=== PATIENT | female | born 1930 | race Caucasian/White ===

== ENCOUNTER 2016-07-05 17:26 | Emergency (ER) | payer MEDICARE, OTHER ==
[~2016-07-05] VITALS: Ht 152.4 cm; Wt 56.8 kg
--- NOTE | 2016-07-05 17:41 | ERD ---
ER Documentation Chief Complaint Date/Time DATE: 07/05/16 TIME: 17:40 Chief Complaint Unhappy with living situation. HPI This 86-year-old female presents emergency room because she is not happy at the facility where she is currently living. She denies wanting to hurt herself or others. Also denies pain or current medical issues. She states however, if she is sent back she will jump in front of a bus. ROS All systems reviewed and are negative except as per history of present illness. Medications Home Meds No Active Prescriptions or Reported Meds Allergies Allergies: Coded Allergies: No Known Allergy (Unverified , 06/13/14) PMhx/Soc History of Surgery: Yes Hx Cardiac Disorders: Yes (HTN; ) Hx Miscellaneous Medical Probl: Yes (THYROID) Hx Alcohol Use: No Hx Substance Use: No Hx Tobacco Use: No Physical Exam Vitals Vital Signs Date Time Temp Pulse Resp B/P Pulse Ox O2 Delivery O2 Flow Rate FiO2 07/05/16 18:20 98.0 78 16 148/68 99 Physical Exam Const: [] No distress, conversive Head: Atraumatic Eyes: Normal Conjunctiva ENT: Normal External Ears, Nose and Mouth. Neck: Full range of motion..~ No meningismus. Resp: Clear to auscultation bilaterally Cardio: Regular rate and rhythm, no murmurs Abd: Soft, non tender, non distended. Normal bowel sounds Skin: No petechiae or rashes Back: No midline or flank tenderness Ext: No cyanosis, or edema Neur: Awake and alert and oriented 3, no focal deficit Psych: Normal Mood and Affect Result Diagram: 07/05/16 19007/05/16 190 Results 24 hrs Laboratory Tests Test 07/05/16 19:00 07/05/16 20:11 White Blood Count 7.910^3/ul Red Blood Count 4.3210^6/ul Hemoglobin 12.9g/dl Hematocrit 39.3% Mean Corpuscular Volume 91.0fl Mean Corpuscular Hemoglobin 29.9pg Mean Corpuscular Hemoglobin Concent 32.8g/dl Red Cell Distribution Width 12.8% Platelet Count 53966^3/UL Mean Platelet Volume 10.0fl Neutrophils % 68.0% Lymphocytes % 17.0% Monocytes % 13.2% Eosinophils % 0.5% Basophils % 0.8% Nucleated Red Blood Cells % 0.0/100WBC Neutrophils # 5.410^3/ul Lymphocytes # 1.310^3/ul Monocytes # 1.010^3/ul Eosinophils # 0.010^3/ul Basophils # 0.110^3/ul Nucleated Red Blood Cells # 0.010^3/ul Sodium Level 139mmol/L Potassium Level 3.5mmol/L Chloride Level 108mmol/L Carbon Dioxide Level 28mmol/L Anion Gap 7 Blood Urea Nitrogen 30mg/dl Creatinine 1.13mg/dl Glucose Level 91mg/dl Calcium Level 9.8mg/dl Total Bilirubin 0.2mg/dl Direct Bilirubin 0.00mg/dl Indirect Bilirubin 0.2mg/dl Aspartate Amino Transf (AST/SGOT) 26IU/L Alanine Aminotransferase (ALT/SGPT) 29IU/L Alkaline Phosphatase 117IU/L Total Protein 6.7g/dl Albumin 3.5g/dl Globulin 3.20g/dl Albumin/Globulin Ratio 1.09 Salicylates Level < 1.0mg/dl Acetaminophen Level < 10.0ug/ml Ethyl Alcohol Level < 10.0mg/dl Urine Color LT. YELLOW Urine Clarity CLEAR Urine pH 7.0 Urine Specific [place] 1.010 Urine Ketones TRACE Urine Nitrite NEGATIVE Urine Bilirubin NEGATIVE Urine Urobilinogen 1.0 E.U./dL Urine Leukocyte Esterase 3+ Urine Microscopic RBC 2-5/HPF Urine Microscopic WBC 10-25/HPF Urine Squamous Epithelial Cells FEW Urine Calcium Oxalate Crystals FEW Urine Amorphous Urates MODERATE Urine Bacteria MANY Urine Hemoglobin 1+ Urine Glucose NEGATIVE% Urine Total Protein TRACE Urine Opiates Screen Negative Urine Barbiturates Negative Urine Amphetamines Screen Negative Urine Benzodiazepines Screen Negative Urine Cocaine Screen Negative Urine Cannabinoids Negative Procedures/MDM Elderly female considering throwing herself in front of a bus because of severe depression secondary to living situation. Patient has an asymptomatic incidentally discovered UTI. She was given 1 g of Rocephin in the emergency room as well as 500 mL of normal saline for mild renal insufficiency. Previous creatinine values are not known but creatinine is barely elevated. At this point I consider the patient medically cleared for psychiatric evaluation and possible admission. Departure Diagnosis: Primary Impression: Major depression Additional Impression: UTI (urinary tract infection) Condition: Gaetano TONYMONIE July 05, 2016 17:41
[2016-07-05 18:20] VITALS: Ht 152.4 cm; Wt 56.8 kg
[2016-07-05 19:35] LABS: ADD SCAN DIFF NO
[2016-07-05 19:37] LABS: BASOPHIL # 0.1 10^3/ul (0.0-0.1); BASOPHILS % 0.8 % (0.0-2.0); EOSINOPHILS % 0.5 % (0.0-7.0); HEMATOCRIT 39.3 % (37.0-47.0); HEMOGLOBIN 12.9 g/dl (12.0-16.0); LYMPHOCYTES # 1.3 10^3/ul (0.8-2.9); MEAN CORPUSCULAR HEMOGLOBIN 29.9 pg (29.0-33.0); MEAN CORPUSCULAR HGB CONC 32.8 g/dl (32.0-37.0); MONOCYTES % 13.2 % (0.0-11.0); NEUTROPHIL # 5.4 10^3/ul (1.6-7.5); PLATELET COUNT 311 10^3/UL (140-415); RED BLOOD COUNT 4.32 10^6/ul (4.20-5.40); RED CELL DISTRIBUTION WIDTH 12.8 % (11.5-14.5); WHITE BLOOD COUNT 7.9 10^3/ul (4.8-10.8)
[2016-07-05 19:54] LABS: ALBUMIN 3.5 g/dl (3.3-4.9); CHLORIDE 108 mmol/L (97-110); SODIUM 139 mmol/L (135-144)
[2016-07-05 19:55] LABS: POTASSIUM 3.5 mmol/L (3.5-5.1)
[2016-07-05 19:56] LABS: CREATININE 1.13 mg/dl (0.44-1.00)
[2016-07-05 19:57] LABS: ALANINE AMINOTRANSFERASE 29 IU/L (13-69); ALBUMIN/GLOBULIN RATIO 1.09; ALKALINE PHOSPHATASE 117 IU/L (42-121); ANION GAP 7 (8-16); ASPARTATE AMINO TRANSFERASE 26 IU/L (15-46); BILIRUBIN,INDIRECT 0.2 mg/dl (0-1.1); BILIRUBIN,TOTAL 0.2 mg/dl (0.2-1.3); BLOOD UREA NITROGEN 30 mg/dl (7-20); CARBON DIOXIDE 28 mmol/L (21-31); GLUCOSE 91 mg/dl (70-220); TOTAL PROTEIN 6.7 g/dl (6.1-8.1)
[2016-07-05 19:58] LABS: CALCIUM 9.8 mg/dl (8.4-10.2)
[2016-07-05 19:59] LABS: ACETAMINOPHEN < 10.0 ug/ml (10.0-30.0); ETHANOL < 10.0 mg/dl; SALICYLATE < 1.0 mg/dl (5.0-30.0)
[2016-07-05 20:31] LABS: ADD UMIC YES; URINE BILIRUBIN (Dip) NEGATIVE (NEGATIVE); URINE BLOOD (Dip) 1+ (NEGATIVE); URINE COLOR LT. YELLOW (YELLOW); URINE GLUCOSE (Dip) NEGATIVE (NEGATIVE); URINE KETONES (Dip) TRACE (NEGATIVE); URINE LEUKOCYTE ESTERASE (Dip) 3+ (NEGATIVE); URINE NITRITE (Dip) NEGATIVE (NEGATIVE); URINE TOTAL PROTEIN (Dip) TRACE (NEGATIVE); URINE UROBILINOGEN (Dip) 1.0 E.U./dL (0.1-1.0)
[2016-07-05 20:50] LABS: BARBITURATES Negative (NEGATIVE)
[2016-07-05 20:51] LABS: CANNABINOIDS Negative (NEGATIVE)
[2016-07-05 20:52] LABS: BACTERIA,URINE MANY; BENZODIAZEPINES Negative (NEGATIVE); OPIATES Negative (NEGATIVE); SQUAMOUS EPITHELIAL CELL,UR FEW
[2016-07-05 20:57] LABS: COCAINE Negative (NEGATIVE)
[2016-07-05] MEDS ORDERED: SOD CHLORIDE 0.9% 500 ML IV ONE (22:00)
[2016-07-05] MEDS ORDERED: CEFTRIAXONE 1 GM/50 ML (PMX) 50 ML IVPB ONE (22:00)
--- NOTE | 2016-07-06 01:11 | PSY ---
Date/Time of Note Date/Time of Note DATE: 07/06/16 TIME: 00:21 Psychiatric Subjective Eval Subjective Evaluation Patient location: emergency Chief Complaint: pt was not compliant about her medications and sent here for evaluation Reason for consult: i dont want to go back to the facility History of present illness patient is a 86 yo male with no PPH who was staying in a rehab facility who told her staff that she wanted to leave the facility without signing any paper work and told them that she had been feeling suicidal so ambulance brought her in for a evaluation. 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 she denies any past or current manic or psychotic symptoms, denies feeling anxious, she has been having problem sleeping for the past 2 days and decrease appetite. no drug or alcohol abuse. Hospitalization: no Family History denies Medical history Problems Medical Problems: (1) Dysuria Status: Acute (2) Major depression Status: Acute (3) UTI (urinary tract infection) Status: Acute Allergies: Coded Allergies: No Known Allergy (Unverified , 06/13/14) Substance Abuse Substance use: No known substance abuse Social History Marital status: Level of education: college DPA/Conservatorship: No Occupation/[employer]: retired Psychiatric Objective Eval Review of Systems: Review of Systems: Not Applicable Physical Examination: Physical Examination: Applicable Sleep: Insomnia Appetite: Decreased Energy: Decreased Interest: Decreased Mental Status Examination: Appearance: Disheveled Eye Contact: Good Psychomotor Activity: Agitated Behavior: Cooperative Speech: Clear AFFECT: Appropriate Mood: Depressed Though Process: Linear Thought Content: Normal Suicidal: No Homicidal: No On 72 hour hold: No Orientation: x3 Cognition: Alert Insight: Intact Judgement: Intact Attention Span: Intact Laboratory Results Laboratory Tests Test 07/05/16 19:00 07/05/16 20:11 White Blood Count 7.910^3/ul Red Blood Count 4.3210^6/ul Hemoglobin 12.9g/dl Hematocrit 39.3% Mean Corpuscular Volume 91.0fl Mean Corpuscular Hemoglobin 29.9pg Mean Corpuscular Hemoglobin Concent 32.8g/dl Red Cell Distribution Width 12.8% Platelet Count 06588^3/UL Mean Platelet Volume 10.0fl Neutrophils % 68.0% Lymphocytes % 17.0% Monocytes % 13.2% Eosinophils % 0.5% Basophils % 0.8% Nucleated Red Blood Cells % 0.0/100WBC Neutrophils # 5.410^3/ul Lymphocytes # 1.310^3/ul Monocytes # 1.010^3/ul Eosinophils # 0.010^3/ul Basophils # 0.110^3/ul Nucleated Red Blood Cells # 0.010^3/ul Sodium Level 139mmol/L Potassium Level 3.5mmol/L Chloride Level 108mmol/L Carbon Dioxide Level 28mmol/L Anion Gap 7 Blood Urea Nitrogen 30mg/dl Creatinine 1.13mg/dl Glucose Level 91mg/dl Calcium Level 9.8mg/dl Total Bilirubin 0.2mg/dl Direct Bilirubin 0.00mg/dl Indirect Bilirubin 0.2mg/dl Aspartate Amino Transf (AST/SGOT) 26IU/L Alanine Aminotransferase (ALT/SGPT) 29IU/L Alkaline Phosphatase 117IU/L Total Protein 6.7g/dl Albumin 3.5g/dl Globulin 3.20g/dl Albumin/Globulin Ratio 1.09 Salicylates Level < 1.0mg/dl Acetaminophen Level < 10.0ug/ml Ethyl Alcohol Level < 10.0mg/dl Urine Color LT. YELLOW Urine Clarity CLEAR Urine pH 7.0 Urine Specific [place] 1.010 Urine Ketones TRACE Urine Nitrite NEGATIVE Urine Bilirubin NEGATIVE Urine Urobilinogen 1.0 E.U./dL Urine Leukocyte Esterase 3+ Urine Microscopic RBC 2-5/HPF Urine Microscopic WBC 10-25/HPF Urine Squamous Epithelial Cells FEW Urine Calcium Oxalate Crystals FEW Urine Amorphous Urates MODERATE Urine Bacteria MANY Urine Hemoglobin 1+ Urine Glucose NEGATIVE% Urine Total Protein TRACE Urine Opiates Screen Negative Urine Barbiturates Negative Urine Amphetamines Screen Negative Urine Benzodiazepines Screen Negative Urine Cocaine Screen Negative Urine Cannabinoids Negative Assessment and Plan Assessment/Diagnosis Napoleon I: mood do nos Napoleon II: deferred Napoleon III: as per record Napoleon IV: housing Napoleon V: gaf 75 Recommendation/Plan Medication Management refusing medication Follow-up/Disposition In my opinion,for this patient, outpatient care is the least restrictive option. Based on available evidence, this condition CAN be safely treated at a lower level of care effective today. Patient is stable without clear and convincing evidence of imminent danger due to mental illness that requires acute inpatient psychiatric care as the least restrictive alternative. please refer patient to outpatient mental health clinic for medication management and pscyhotherapy RICHARD BURDICK MD July 06, 2016 00:43
[2016-07-06] MEDS ORDERED: CEPH-443 PO (11:49)
[2016-07-06 11:55] VITALS: BP 169/74; PULSE 86; RESP 18; TEMP 98.1
== END 2016-07-06 12:07 | disposition home or self-care (01) ==
LOC: E/R 17:26
DX: F32.9 Major depressive disorder, single episode, unspecified (principal); I10 Essential (primary) hypertension; N39.0 Urinary tract infection, site not specified
CPT/HCPCS: 80053; 80306; 80307; 81001; 85025; 96374; 99284; J0696; J7040